=== PATIENT | female | born 1945 | race Caucasian/White ===

== ENCOUNTER 2018-05-19 10:27 | Day surgery (SDC) | payer MEDICARE, OTHER ==
[~2018-05-19] VITALS: Ht 160 cm; Wt 50.8 kg
[2018-05-19] MEDS ORDERED: LACTATED RINGERS 1,000 ML IV SCH (10:52)
[2018-05-19 11:07] VITALS: BP 121/82
[2018-05-19] MEDS ORDERED: CHRO1TAB7 PO (11:07)
[2018-05-19] MEDS ORDERED: MULT-724 PO (11:07)
[2018-05-19] MEDS ORDERED: CALC-151 PO (11:07)
[2018-05-19] MEDS ORDERED: OMEG1CAP6 PO (11:07)
[2018-05-19] MEDS ORDERED: MIDAZOLAM 1 MG/ML, 2ML ONE (11:41)
[2018-05-19] MEDS ORDERED: PROPOFOL 10 MG/ML, 20ML ONE (11:41)
[2018-05-19] MEDS ORDERED: FENTANYL PF 100 MCG/2ML ONE (11:41)
[2018-05-19] MEDS ORDERED: FENTANYL PF 100 MCG/2ML IV PRN (12:00)
[2018-05-19] MEDS ORDERED: ONDANSETRON 2MG/ML, 2ML IV PRN (12:00)
[2018-05-19] MEDS ORDERED: MEPERIDINE/PF 25MG/0.5ML IVPush PRN (12:00)
[2018-05-19] MEDS ORDERED: ACETAMINOPHEN 325 MG TABLET PO PRN (12:00)
[2018-05-19] MEDS ORDERED: OXYcodone 5 MG/5 ML ORAL.SOL UDC PO PRN (12:00)
[2018-05-19] MEDS ORDERED: HYDROmorphone 1 MG/ML, 1ML IV PRN (12:00)
== END 2018-05-19 15:05 | disposition home or self-care (01) ==
LOC: OUT 10:27
PROVIDERS: ATTEND Internal Medicine
DX: K86.9 Disease of pancreas, unspecified (principal); Z85.3 Personal history of malignant neoplasm of breast; Z90.10 Acquired absence of unspecified breast and nipple; Z98.51 Tubal ligation status; Z88.1 Allergy status to other antibiotic agents; Z88.8 Allergy status to other drugs, medicaments and biological substances
CPT/HCPCS: 43238; 88172; 88173; 88307; 93005; J2250; J2704; J3010; J7120